=== PATIENT | female | born 1985 | race Caucasian/White ===

== ENCOUNTER 2017-03-21 20:33 | Emergency (ER) | payer OTHER ==
[2017-03-21] MEDS ORDERED: Lidocaine 2% with EPINEPHrine 1:200,000 20 ML SDV INJECT ONE (20:51)
[2017-03-21] MEDS ORDERED: Lidocaine 2% with EPINEPHrine 1:200,000 20 ML SDV ONE (20:51)
[2017-03-21] MEDS ORDERED: Cephalexin 250 MG Cap PO ONE (21:39)
[2017-03-21] MEDS ORDERED: Bacitracin/Neomycin/Polymyxin B Oint 0.9 GM U/D Packet TOP ONE (21:48)
[2017-03-21] MEDS ORDERED: Bacitracin/Neomycin/Polymyxin B Oint 0.9 GM U/D Packet ONE (21:50)
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
[2017-03-21 23:14] VITALS: BP 129/83
== END 2017-03-21 22:05 | disposition home or self-care (01) ==
LOC: KA.ED 20:33
DX: S91.311A Laceration without foreign body, right foot, initial encounter (principal); S96.921A Laceration of unspecified muscle and tendon at ankle and foot level, right foot, initial encounter; Y04.2XXA Assault by strike against or bumped into by another person, initial encounter
CPT/HCPCS: 12002; 99284; A9270

== ENCOUNTER 2017-03-24 22:06 | Emergency (ER) | payer OTHER ==
[2017-03-24] MEDS ORDERED: Acetaminophen 325 MG Tab PO ONE (22:23)
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
[2017-03-24 22:41] VITALS: BP 140/66
[2017-03-24] MEDS ORDERED: cefTRIAXone 1 GM Vial IVPUSH ONE (22:41)
[2017-03-24] MEDS ORDERED: cefTRIAXone 1 GM Vial IM ONE (22:42)
[2017-03-24] MEDS ORDERED: Lidocaine 1% 20 ML MDV ONE (22:59)
[2017-03-24] MEDS ORDERED: Amoxicillin/Clavulanate K 875-125 MG Tab PO ONE (23:06)
[2017-03-24] MEDS ORDERED: Amoxicillin/Clavulanate K 875-125 MG Tab ONE (23:07)
[2017-03-24] MEDS ORDERED: Diphtheria,Pertussis(Acell),Tetanus Vaccine 0.5 ML SDV IM ONE (23:07)
== END 2017-03-24 23:20 | disposition home or self-care (01) ==
LOC: KA.ED 22:06
DX: L03.115 Cellulitis of right lower limb (principal); S91.311D Laceration without foreign body, right foot, subsequent encounter; Z87.891 Personal history of nicotine dependence
CPT/HCPCS: 36415; 73620; 85025; 90471; 90715; 96372; 99283; A9270; J0696